=== PATIENT | female | born 1960 | race Caucasian/White ===

== ENCOUNTER → 2016-12-15 | Outpatient (CLI) | payer BC ==
[~2016-12-15] MED LIST: ASPI81TA28 PO; ESCI10TA17 PO; FLUT1INH7; HYDR-5688 PO; HYDR1SOL10 PO; METO50TA7 PO; NXM/40 PO; PRM625 PO; vitamin d PO
== END | disposition home or self-care (01) ==
LOC: C.LABSPEC 17:02
PROVIDERS: ATTEND Urology
DX: R31.29 Other microscopic hematuria (principal)

== ENCOUNTER → 2016-12-17 | Outpatient (CLI) | payer BC ==
--- NOTE | 2016-12-17 10:25 | DIAGNOSTIC IMAGING REPORT ---
RENAL ULTRASOUND HISTORY: Hematuria R31.29 Hematuria, [id number] COMPARISON: None FINDINGS: Right kidney: Maximum dimension 10.5 cm. 4 mm nonobstructing calcification mid pole. Normal corticomedullary differentiation and cortical thickness. Left kidney: Maximum dimension 10.7 cm. Several small nonobstructing calcifications. Normal corticomedullary differentiation and cortical thickness. Bladder: Possible small bladder calcification. IMPRESSION: Small bilateral nonobstructing renal calcifications. No evidence renal hydronephrosis. Small bladder calcification. Electronically signed by: Fransisco Lee M.D. 12/17/2016 10:24 AM Dictated Date/Time: 12/17/2016 10:21 AM
== END | disposition home or self-care (01) ==
LOC: C.ULTR 08:35
PROVIDERS: ATTEND Urology
DX: R31.29 Other microscopic hematuria (principal)

== ENCOUNTER → 2016-12-17 | Outpatient (CLI) | payer BC ==
--- NOTE | 2016-12-17 10:36 | DIAGNOSTIC IMAGING REPORT ---
CT SINUSES WITH BRAIN LAB CT DOSE: 662.00 mGy.cm CLINICAL HISTORY: Chronic sinusitis. TECHNIQUE: Axial images of the sinuses were obtained without IV contrast. Coronal reformats were viewed. COMPARISON STUDY: None. FINDINGS: Visualized portions of the intracranial contents are unremarkable. Orbits are unremarkable. Mastoid air cells are clear. There is no fluid within the middle ears. The ossicles are intact. There is mild mucosal thickening of the sinuses. The major drainage pathways are patent. There is no bony destruction. There is slight leftward deviation of the nasal septum without spur formation. Cribriform plate is intact. No mass is identified within the nasal cavity or the sinuses. IMPRESSION: Mild mucosal thickening of the sinuses. Patent major drainage pathways without evidence for acute sinusitis. Electronically signed by: Kenneth Brooks M.D. 12/17/2016 10:34 AM Dictated Date/Time: 12/17/2016 10:30 AM
== END | disposition home or self-care (01) ==
LOC: C.CTS 08:33
PROVIDERS: ATTEND Otolaryngology
DX: J32.9 Chronic sinusitis, unspecified (principal)

== ENCOUNTER 2017-01-07 05:22 | Observation (INO) | payer BC ==
[2016-12-17 08:57] VITALS: Ht 157.5 cm; Wt 82.8 kg
--- NOTE | 2016-12-17 09:20 | PAT Medication Instructions ---
Service Date Dec 17, 2016. Current Home Medication List Aspirin (Aspirin Ec), 81 MG PO QPM Escitalopram (Lexapro), 10 MG PO QPM Esomeprazole Magnesium (Nexium), 40 MG PO QAM Estrogens, Conjugated (Premarin), 0.625 MG PO QPM Fluticasone Furoate-Vilanterol (Breo Ellipta 200-25 Mcg/INH), Unknown Dose DAILY Metoprolol Succ (Toprol Xl) (Toprol-Xl), 50 MG PO QPM [vitamin d ], 2,000 INTERUNIT PO QPM Medication Instructions For Your Scheduled Surgery - Take the following medications as scheduled the night before surgery: Metoprolol Succ (Toprol Xl) (Toprol-Xl), 50 MG PO QPM [vitamin d ], 2,000 INTERUNIT PO QPM Estrogens, Conjugated (Premarin), 0.625 MG PO QPM Aspirin (Aspirin Ec), 81 MG PO QPM Escitalopram (Lexapro), 10 MG PO QPM Fluticasone Furoate-Vilanterol (Breo Ellipta 200-25 Mcg/INH), Unknown Dose DAILY Esomeprazole Magnesium (Nexium), 40 MG PO pm NOTHING TO EAT OR DRINK AFTER MIDNIGHT If you have any questions please call us at [phone] or [phone] or [phone]
[2016-12-17 10:20] LABS: BUN/CREATININE RATIO 16.4 (10-20); CREATININE 0.77 mg/dl (0.60-1.20); POTASSIUM 4.5 mmol/L (3.5-5.1)
[2016-12-17 10:27] LABS: BASO % 0.3 %; BASO ABS # 0.02 K/uL (0-0.2); CALCIUM 8.9 mg/dl (8.5-10.1); COMPLETE YES; HEMATOCRIT 39.3 % (37-47); IG% 0.1 %; LYMPH % 31.9 %; LYMPH ABS # 2.31 K/uL (1.2-3.4); MEAN CELL VOLUME 87.1 fL (80-100); MEAN CORPUSCULAR HEMOGLOBIN 28.4 pg (25-34); MEAN CORPUSCULAR HGB CONC 32.6 g/dl (32-36); MONO % 7.5 %; NEUT % 57.2 %; PLATELET COUNT 265 K/uL (130-400); RED BLOOD COUNT 4.51 M/uL (4.2-5.4); WHITE BLOOD COUNT 7.24 K/uL (4.8-10.8)
--- NOTE | 2017-01-06 16:03 | History and Physical ---
History & Physical Date Jan 06, 2017. Chief Complaint sinusitis, sleep apnea History of Present Illness The patient is a 56 year old female with complaints of sleep apnea aggravated by nasal obstruction/sinusitis Additional History Hepatic Disease: No Endocrine Disorder: No Hypertension: Yes Heart Disease: No Bleeding Tendencies: No Infectious Diseases: No Allergies Coded Allergies: No Known Allergies (Unverified , 12/17/16) Home Medications Scheduled Aspirin (Aspirin Ec), 81 MG PO QPM Escitalopram (Lexapro), 10 MG PO QPM Esomeprazole Magnesium (Nexium), 40 MG PO QPM Estrogens, Conjugated (Premarin), 0.625 MG PO QPM Fluticasone Furoate-Vilanterol (Breo Ellipta 200-25 Mcg/INH), Unknown Dose DAILY Metoprolol Succ (Toprol Xl) (Toprol-Xl), 50 MG PO QPM [vitamin d ], 2,000 INTERUNIT PO QPM Physical Examination Skin: warm/dry, no rash Eyes: normal inspection, EOMI, sclerae normal ENT: normal ENT inspection, pharynx normal Head: normocephalic, atraumatic Neck: supple, no adenopathy, trachea midline Respiratory/Chest: lungs clear, normal breath sounds, no respiratory distress Cardiovascular: regular rate, rhythm, no edema, no murmur Abdomen / GI: normal bowel sounds, non tender Back: normal inspection Extremities: normal inspection, normal range of motion Neurologic/Psych: no motor/sensory deficits, alert, normal reflexes, oriented x 3 Diagnosis sleep apnea, chronic sinusitis Plan of Treatment endoscopic sinus surgery,tonsillectomy, uvulopalatopharyngoplasty, explained risks.
[~2017-01-07] VITALS: Ht 157.5 cm; Wt 82.8 kg
[2017-01-07] VITALS (11 sets, daily range): BP systolic 120–141; BP diastolic 72–84; PULSE 66–92; TEMP 36.4–37; O2SAT 91–97
[~2017-01-07 05:22] MED LIST changes: -HYDR-5688 PO; -HYDR1SOL10 PO
[2017-01-07] MEDS ORDERED: LACTATED RINGER'S 1000ML 1,000 ML IV SCH (06:00)
[2017-01-07] MEDS ORDERED: CEFAZOLIN 2000 MG/60 ML D5W IV SCH (06:00)
[2017-01-07] MEDS ORDERED: MIDAZOLAM HCL 1 MG/ML 2ML VIAL ONE (06:34)
[2017-01-07] MEDS ORDERED: LIDOCAINE HCL 2% 2 ML VIAL (20MG/ML) ONE (06:34)
[2017-01-07] MEDS ORDERED: PROPOFOL IV EMULSION 10 MG/ML 20 ML VIAL IV ONE (06:34)
[2017-01-07] MEDS ORDERED: ONDANSETRON INJ 2 MG/ML 2 ML VIAL ONE (06:34)
[2017-01-07] MEDS ORDERED: ROCURONIUM BROMIDE 10 MG/ML 5 ML VIAL ONE ×2 (06:34→08:29)
[2017-01-07] MEDS ORDERED: NEOSTIGMINE METHYLSULFATE 5 MG/5 ML SYR ONE (06:34)
[2017-01-07] MEDS ORDERED: DEXAMETHASONE SOD INJ 4 MG/ML VIAL ONE ×2 (06:34→07:29)
[2017-01-07] MEDS ORDERED: GLYCOPYRROLATE INJ 0.2 MG/ML VIAL ONE ×2 (06:34→06:38)
[2017-01-07] MEDS ORDERED: FENTANYL CITRATE INJ 50 MCG/1 ML 2 ML VIAL ONE ×2 (06:35→09:22)
[2017-01-07] MEDS ORDERED: SUCCINYLCHOLINE CHLORIDE 20 MG/ML 10 ML VIAL IV ONE (06:39)
[2017-01-07] MEDS ORDERED: LIDOCAINE 4% INH SOLN 4 ML BTL ONE (06:51)
[2017-01-07] MEDS ORDERED: LIDO 2%/EPINEPHRINE 1:100000 20 ML VIAL INFIL ONE (06:51)
[2017-01-07] MEDS ORDERED: TRIAMCINOLONE ACET 40 MG/ML VIAL ONE (06:51)
[2017-01-07] MEDS ORDERED: BACITRACIN OINT 15 GM TUBE ONE (06:51)
[2017-01-07] MEDS ORDERED: GELATIN SPONGE 12-7MM ONE (06:51)
[2017-01-07] MEDS ORDERED: EpINEphrine INJ 1MG/ML AMP 1 MG/ML AMP ONE (06:51)
--- NOTE | 2017-01-07 06:54 | History & Physical Bridge Note ---
H&P Re-Evaluation Bridge Note: I have examined the patient, reviewed the History & Physical and in the interval since the performance of the History & Physical I have noted the following changes of clinical significance: No changes noted
[2017-01-07] MEDS ORDERED: EpHEDrine SULFATE INJ 50 MG/ML AMP ONE (07:46)
[2017-01-07] MEDS ORDERED: EpHEDrine SULFATE INJ 50 MG/ML AMP IV PRN (08:00)
[2017-01-07] MEDS ORDERED: ATROPINE SULFATE 0.1 MG/ML 5ML SYR IV PRN (08:00)
[2017-01-07] MEDS ORDERED: FENTANYL CITRATE INJ 50 MCG/1 ML 2 ML VIAL IV PRN (08:00)
[2017-01-07] MEDS ORDERED: ACETAMINOPHEN 1000 MG/100 ML IV IV ONE (08:30)
[2017-01-07] MEDS ORDERED: MoRPHine SULFATE 4 MG/ML 1 ML CARP\\VIAL IV PRN (10:00)
[2017-01-07] MEDS ORDERED: ONDANSETRON INJ 2 MG/ML 2 ML VIAL IV PRN (10:00)
[2017-01-07] MEDS ORDERED: ACETAMINOPHEN 325 MG TAB PO PRN (10:00)
--- NOTE | 2017-01-07 10:17 | [facility] Operative Report ---
Operative Report Operative Date Jan 07, 2017. Pre-Operative Diagnosis Sleep Apnea, Chronic Sinusitis Post-Operative Diagnosis same Procedure(s) Performed Left frontal right and left total ethmoid and right and left maxillary sinus antrostomies, right and left tonsillectomy with uvulopalatopharyngoplasty Surgeon Dr. Rodrigez Microscopist Surgeon(s) none Estimated Blood Loss 100 ml Findings Large tonsils, adhesions and osteitis in the sinuses. Specimens A. Left Tonsil B. Right Tonsil Drains none Anesthesia Gen. endotracheal Complication(s) None Disposition Recovery Room / PACU Indications 56-year-old lady with significant sleep apnea she is intolerant of CPAP. She also has a long history of recurrent chronic sinusitis after sinus surgery by me more than 20 years ago. She has significant headaches in the frontal area on a daily basis. She also has inability to breathe through her nose aggravating her sleep apnea. Description of Procedure The patient was brought to the operating room placed in the supine position. Case[employer] device was calibrated for the entire procedure. She was prepped with Betadine paint and then draped in the usual sterile manner. Topical cottonoids with a solution of 4 mL of 4% Xylocaine mixed with 1 mL of adrenaline was used. Injection of 2% Xylocaine with 1 100,000 strength epinephrine was also used. The right maxillary sinus was cannulated with the guidewire and dilated using 6 mm balloon as well as the left maxillary sinus. The left nasofrontal duct was cannulated with the guidewire and dilated using the 6 mm balloon with BrainLab computer guidance a guidewire was was then left in place as a marker. The catheter was removed as the guidewire was left in place, and the total ethmoidectomy was performed using shaver couple with the BrainLab device. At first the frontal sinusotomy was performed by removing the anterior wall and the posterior wall of the agger nasi cell finding nasofrontal duct leaving the mucosa there are intact. Total ethmoidectomy was performed going through the previously partially resected by ethmoidalis and then going through the ground lamella into the posterior ethmoid air cells delineating the skull base superiorly and the lamina papyracea bilaterally with the BrainLab device and then following the structures anteriorly to exonerate all the posterior and then all the anterior ethmoid air cells. Dissection was continued to the previously dilated nasofrontal duct maxillary sinus was found using the seeker and then opened connecting it to an accessory ostia using the shaver. The right frontal sinusotomy total ethmoidectomy and maxillary sinus antrostomy was performed in a similar manner. Adhesions and old osteitis were removed. Frontal sinus was opened in a similar manner as was the maxillary sinus. Propel stents were placed with a many stent in the right nasal frontal duct and to regular stents in the ethmoid area. Attention was turned to the pharynx the mouth gag was placed. The soft palate was retracted using the [place] catheter. Peritonsillar areas were injected with 2% Xylocaine with 1 100,000 strength epinephrine. Tonsillectomies were performed using the plasma knife. Hemostasis was controlled using the plasma knife. Uvular and soft palate resection was performed using the #15 blade and the Metzenbaum scissors. The cut was placed in the palatoglossus fold and a flap was cut into the palatopharyngeus fold. The flap was rotated laterally into the the cut. All the mucosal edges were closed using continuous 2-0 chromic sutures. The pharynx was irrigated clean with saline the patient tolerated the procedure well and was taken to the recovery area in satisfactory condition I attest to the content of the Intraoperative Record and any orders documented therein. Any exceptions are noted below.
--- NOTE | 2017-01-07 11:05 | Anesthesiology Progress Note ---
Anesthesia Post Op Note Date & Time Jan 07, 2017 at 11:05 Vital Signs Pain Intensity: 0 Vital Signs Past 12 Hours Date Time Temp Pulse Resp B/P (MAP) Pulse Ox O2 Delivery O2 Flow Rate FiO2 01/07/17 10:45 36.6 74 16 124/75 97 Nasal Cannula 2 01/07/17 10:30 36.6 74 16 114/70 96 Nasal Cannula 2 01/07/17 10:20 36.6 80 16 115/72 94 Room Air 01/07/17 10:10 80 16 122/69 92 Room Air 01/07/17 10:00 80 16 114/74 97 Mask 10 01/07/17 09:50 82 16 129/68 97 Mask 10 01/07/17 09:44 36.6 88 16 131/70 97 Mask 10 01/07/17 05:46 36.6 66 18 133/72 (92) 96 Room Air Notes Mental Status: alert / awake / arousable, participated in evaluation Pt Amnestic to Procedure: Yes Nausea / Vomiting: adequately controlled Pain: adequately controlled Airway Patency, RR, SpO2: stable & adequate BP & HR: stable & adequate Hydration State: stable & adequate Anesthetic Complications: no major complications apparent
[2017-01-07] MEDS ORDERED: IV FLUIDS COMPLETED PRN (11:30)
[2017-01-07] MEDS: ACETAMINOPHEN/HYDROCODONE ELIX 15 ML/CUP UDP PO PRN ×3 (11:38→23:51)
[2017-01-07] MEDS: D5W AND 1/2NSS + 20MEQ KCL 1,000 ML IV SCH ×2 (12:21→21:27)
[2017-01-07] MEDS: MoRPHine SULFATE 2 MG/ML CARP IV PRN ×3 (15:32→22:30)
[2017-01-07] MEDS: CEFAZOLIN IV 1,000 MG in DEXTROSE 5% 50ML 50 ML IV SCH ×2 (15:36→23:51)
[2017-01-08 03:36] VITALS: BP 125/75; PULSE 86; TEMP 36.8; O2SAT 93
[2017-01-08 07:14] VITALS: BP 115/66; PULSE 76; TEMP 36.7; O2SAT 92
[2017-01-08] MEDS: D5W AND 1/2NSS + 20MEQ KCL 1,000 ML IV SCH (07:27)
[2017-01-08] MEDS: ACETAMINOPHEN/HYDROCODONE ELIX 15 ML/CUP UDP PO PRN (07:27)
[2017-01-08] MEDS ORDERED: METOPROLOL SUCC 50MG EXT REL TAB PO SCH (09:00)
[2017-01-08] MEDS ORDERED: HYDR-5688 PO (09:25)
[2017-01-08] MEDS ORDERED: HYDR1SOL10 PO (09:25)
--- NOTE | 2017-01-08 09:27 | Discharge Instructions-SurgCtr ---
Discharge Instructions Date of Service Jan 08, 2017. Visit Reason for Visit: Chronic Sinusitis, Sleep Apnea Discharge Discharge Diagnosis / Problem: same Discharge Goals Goal(s): Improve function Activity Recommendations Activity Limitations: per Instructions/Follow-up section Anesthesia . Post Anesthesia Instructions: If you have had General Anesthesia or IV Sedation: * Do not drive today. * Resume driving when surgeon permits. * Do not make important decisions or sign legal documents today. * Call surgeon for: 1. Temperature elevations greater than 101 degrees F. 2. Uncontrollable pain. 3. Excessive bleeding. 4. Persistent nausea and vomiting. 5. Medication intolerance (nausea, vomiting or rash). * For nausea and vomiting use only clear liquids such as: tea, soda, bouillon until nausea subsides, then gradually increase diet as tolerated. * If you have any concerns or questions, call your surgeon's office. If physician is unavailable and it is an emergency, call 911 or go to the nearest emergency room. . Instructions / Follow-Up Instructions / Follow-Up ACTIVITY RECOMMENDATIONS: * During the first few days, activities should be limited. * Stay indoors for several days. * After 48 hours, activity can gradually be increased to normal activity. RETURN TO SCHOOL/WORK: * Return to school or work in one week. * No physical education for two weeks. OVER THE COUNTER MEDICATIONS: * You may use Tylenol * Avoid aspirin or aspirin containing products, e.g. as they may increase bleeding. SPECIAL CARE INSTRUCTIONS: * Avoid coughing or clearing the throat. * Do not use a straw. * A sore throat is expected frequently accompanied by pain radiating to the ears. This is normal. * Expect bad breath until "scabs" are healed. * Notify the doctor if bleeding occurs, vomiting, temperature greater than 101 degrees Fahrenheit. Call or cell phone: . * If bleeding occurs, it is usually in the first 24 hours or after the 5th day. If unable to reach the doctor, go to the nearest Emergency Department. Special Diet: * Fluids are very important and should be encouraged to maintain adequate hydration. * To maintain nutrition, eat soft foods and after 48 hours the consistency of foods can be increased. Examples are jello, soup, pasta, ice cream and mashed foods. FOLLOW UP VISIT: Follow-up visit with Dr. Rodrigez in 2 weeks. Please call to schedule if not already scheduled.ACTIVITY RECOMMENDATIONS: * Being up and around is good, but no strenuous activity, heavy lifting or physical exertion for one week. * Keep your head elevated 30 degrees when lying down or sleeping. * Do not blow your nose for 48 hours, sniff back instead. * Avoid hot showers. OVER THE COUNTER MEDICATIONS: * You may use Tylenol * Avoid aspirin or aspirin containing products, e.g. as they may increase bleeding. SPECIAL CARE INSTRUCTIONS: * Expect to have bloody drainage from your nose and/or down your throat for one to three days. Change drip pad as needed. * Begin irrigating your nose with saline solution today, at least six to ten times per day and sniff back to help remove old clots or crust. * You may experience nasal and facial congestion, pain and pressure, this is normal. * Please call with any significant and/or progressive pain, redness, swelling around the eyes, visual changes, fever of 101.5 degrees F, active bleeding or any problems or concerns. * If active bleeding occurs, spray the nose three times at one minute intervals with Afrin spray and call or cell phone: . If unable to reach the doctor, go to the nearest Emergency Department. Special Diet: * Avoid extremely hot fluids. FOLLOW UP VISIT: Follow-up Visit with Dr. Rodrigez If not already scheduled, please call to schedule. Diet Recommendations Home Diet: special diet Diet Texture: Mechanical Soft (ground) Procedures Procedures Performed: Endoscopic Sinus Surgery, Right and Left Frontal Sinusotomies, Right and Left Total Ethmoid Sinusotomies, Right and Left Maxillary Sinusotomies, Tonsillectomy, Uvulopalatopharyngoplasty Brainlab Pending Studies Studies pending at discharge: no Medical Emergencies . Who to Call and When: Medical Emergencies: If at any time you feel your situation is an emergency, please call 911 immediately. . Non-Emergent Contact Non-Emergency issues call your: Primary Care Provider . . "Provider Documentation" section prepared by Tiara Rodrigez. . [place] Drug Monitoring Program Search Results: no issues identified
--- NOTE | 2017-01-08 09:31 | Discharge Summary ---
Discharge Summary Date of Service Jan 08, 2017. Discharge Summary Admission Date: Jan 07, 2017 at 05:35 Discharge Date: Jan 08, 2017 Primary Diagnosis: sleep apnea Discharge Instructions Last Recorded Wt (Kilograms): 82.800 Activity Recommendations: limitations as noted below Return to School/Work: limitations Diet At Discharge: Mechanical Soft Allergies: Coded Allergies: No Known Allergies (Unverified , 01/07/17) Home Health Services: none Special Care: Call your doctor if: * Temperature above 101 degrees * Pain not relieved by pain medicine ordered * There is increased drainage or redness from any incision * You have any unanswered questions or concerns. Avoid all tobacco products. If you need help to stop smoking, call [place]'s FREE QUITLINE at . This is a free call. Admission Information Admission HPI: see H and P Admission Physical Exam: see H and P Hospital Course She did well postop Total time spent on discharge = This includes examination of the patient, discharge planning, medication reconciliation, and communication with other providers.
[2017-01-08 10:43] VITALS: BP 115/66; PULSE 76; TEMP 36.7; O2SAT 92
== END 2017-01-08 11:46 | disposition home or self-care (01) ==
LOC: C.ACU 05:22 → C.MSW 05:35 → ENRESERV 10:24 → MERGE 11:40
PROVIDERS: ADMIT Otolaryngology; ATTEND Otolaryngology
DX: J32.9 Chronic sinusitis, unspecified (principal); J34.89 Other specified disorders of nose and nasal sinuses; J35.1 Hypertrophy of tonsils; K11.1 Hypertrophy of salivary gland; G47.30 Sleep apnea, unspecified; Z79.82 Long term (current) use of aspirin; Z79.899 Other long term (current) drug therapy

== ENCOUNTER → 2017-07-07 | Outpatient (CLI) | payer BC ==
[~2017-07-07] MED LIST changes: +HYDR-5688 PO; +HYDR1SOL10 PO
== END | disposition home or self-care (01) ==
LOC: C.LABSPEC 16:07
PROVIDERS: ATTEND Urology
DX: R31.29 Other microscopic hematuria (principal)